=== PATIENT | male | born 1960 | race African-American/Black ===

== ENCOUNTER 2018-05-12 23:07 | Emergency (ER) | payer OTHER ==
[~2018-05-12] VITALS: Ht 177.8 cm; Wt 74.8 kg
[2018-05-12 23:24] VITALS: BP 127/79
--- NOTE | 2018-05-13 00:11 | Emergency Room Report ---
History of Present Illness General Chief Complaint: General Complaint Source: Patient Present Illness HPI Patient is a 57-year-old male brought in by self after increased discharge and swelling from his left leg. Patient reports having recent possible spider bite approximately 2 days ago. Patient reported having increased swelling. He had attempted last this himself. He denies any fever or chills. He denied prior history of HIV or diabetes. Allergies: Coded Allergies: No Known Allergies (Unverified , 05/12/18) Patient History Reviewed Nursing Documentation: PMH: Agreed; PSxH: Agreed Nursing Documentation-PMH Past Medical History: No Stated History Review of Systems All Other Systems: negative except mentioned in HPI Physical Exam Vital Signs Date Time Temp Pulse Resp B/P (MAP) Pulse Ox O2 Delivery O2 Flow Rate FiO2 05/12/18 23:09 98.0 114 18 123/78 99 Room Air 98.1 Sp02 EP Interpretation: reviewed, normal General Appearance: normal inspection, well appearing, no apparent distress, alert, GCS 15 Head: atraumatic ENT: normal ENT inspection, hearing grossly normal, normal voice Neck: normal inspection, full range of motion, supple, no bony tend Respiratory: normal inspection, lungs clear, normal breath sounds, no respiratory distress, no retraction, no wheezing Cardiovascular #1: regular rate, rhythm, no edema Gastrointestinal: normal inspection, normal bowel sounds, non tender, soft, no guarding, no hernia Genitourinary: no CVA tenderness Musculoskeletal: normal inspection, back normal, normal range of motion Neurologic: normal inspection, alert, responsive, speech normal Psychiatric: normal inspection, judgement/insight normal, mood/affect normal Skin: other - left anterior leg discharge and purulent drainage Medical Decision Making Diagnostic Impression: Primary Impression: Abscess of left leg ER Course Patient presented for skin rash. Differential diagnosis included was not limited to abscess, cellulitis, folliculitis, necrotizing fasciitis among others.Because of complexity of patient's case laboratory testing and imaging studies were ordered. The patient was given IV fluids as well as IV antibiotics.The patient was noted to have evidence of purulent drainage. Patient appeared to have adequate drainage of abscess to his left anterior leg. The patient was offered admission. The patient declined admission The patient is advised to follow up with primary care doctor in 1-2 days. Patient is advised to return if any worsening condition or if any changes in status that are concerning. This report is dictated with Dragon tool repair technician software which may occasionally lead to discrepancies related to use of this software. Labs Test 05/13/18 00:19 05/13/18 00:30 White Blood Count 9.0 K/UL (4.8-10.8) Red Blood Count 4.75 M/UL (4.70-6.10) Hemoglobin 13.9 G/DL (14.2-18.0) Hematocrit 41.2 % (42.0-52.0) Mean Corpuscular Volume 87 FL (80-99) Mean Corpuscular Hemoglobin 29.3 PG (27.0-31.0) Mean Corpuscular Hemoglobin Concent 33.8 G/DL (32.0-36.0) Red Cell Distribution Width 12.7 % (11.6-14.8) Platelet Count 155 K/UL (150-450) Mean Platelet Volume 17.0 FL (6.5-10.1) Neutrophils (%) (Auto) 68.6 % (45.0-75.0) Lymphocytes (%) (Auto) 18.9 % (20.0-45.0) Monocytes (%) (Auto) 10.5 % (1.0-10.0) Eosinophils (%) (Auto) 1.1 % (0.0-3.0) Basophils (%) (Auto) 0.9 % (0.0-2.0) Sodium Level 137 MMOL/L (136-145) Potassium Level 3.3 MMOL/L (3.5-5.1) Chloride Level 103 MMOL/L (98-107) Carbon Dioxide Level 28 MMOL/L (21-32) Anion Gap 6 mmol/L (5-15) Blood Urea Nitrogen 12 mg/dL (7-18) Creatinine 1.2 MG/DL (0.55-1.30) Estimat Glomerular Filtration Rate > 60 mL/min (>60) Glucose Level 115 MG/DL (74-106) Calcium Level 9.1 MG/DL (8.5-10.1) Phosphorus Level 2.8 MG/DL (2.5-4.9) Magnesium Level 1.9 MG/DL (1.8-2.4) Total Bilirubin 0.5 MG/DL (0.2-1.0) Aspartate Amino Transf (AST/SGOT) 14 U/L (15-37) Alanine Aminotransferase (ALT/SGPT) 21 U/L (12-78) Alkaline Phosphatase 70 U/L (46-116) Total Creatine Kinase 92 U/L (26-308) Creatine Kinase MB 0.8 NG/ML (0.0-3.6) Creatine Kinase MB Relative Index 0.8 Total Protein 8.4 G/DL (6.4-8.2) Albumin 3.6 G/DL (3.4-5.0) Globulin 4.8 g/dL Albumin/Globulin Ratio 0.8 (1.0-2.7) Lactic Acid Level 0.90 mmol/L (0.4-2.0) Last Vital Signs Date Time Temp Pulse Resp B/P (MAP) Pulse Ox O2 Delivery O2 Flow Rate FiO2 05/12/18 23:24 98.4 70 18 127/79 99 Room Air 98.4 Status: improved Disposition: HOME, SELF-CARE Condition: Stable Scripts Trimethoprim/Sulfamethoxazole 160/800* (BACTRIM DS TABLET*) 1 Each Tablet 1 TAB ORAL Q12H, #14 TAB 0 Refills Prov: Pierre Blevins MD 05/13/18 Cephalexin* (KEFLEX*) 500 Mg Capsule 500 MG ORAL EVERY 6 HOURS, #28 CAP Prov: Pierre Blevins MD 05/13/18 Referrals: [facility]ERR[facility] (PCP) Pierre Blevins MD May 13, 2018 00:11
[2018-05-13] MEDS ORDERED: Ampicillin/Sulbactam Sod 3 GM in NS 110 ML IV SCH (00:15)
[2018-05-13 00:59] LABS: BASOPHILS % (AUTO) 0.9 % (0.0-2.0); EOSINOPHILS % (AUTO) 1.1 % (0.0-3.0); HEMATOCRIT 41.2 % (42.0-52.0); HEMOGLOBIN 13.9 G/DL (14.2-18.0); LYMPHOCYTES % (AUTO) 18.9 % (20.0-45.0); MEAN CORPUSCULAR VOLUME 87 FL (80-99); MONOCYTES % (AUTO) 10.5 % (1.0-10.0); NEUTROPHILS % (AUTO) 68.6 % (45.0-75.0); PLATELET COUNT 155 K/UL (150-450); RED BLOOD COUNT 4.75 M/UL (4.70-6.10); RED CELL DISTRIBUTION WIDTH 12.7 % (11.6-14.8)
[2018-05-13 01:10] LABS: ANION GAP 6 mmol/L (5-15); BLOOD UREA NITROGEN 12 mg/dL (7-18); CALCIUM 9.1 MG/DL (8.5-10.1); CARBON DIOXIDE 28 MMOL/L (21-32); CHLORIDE 103 MMOL/L (98-107); CREATININE 1.2 MG/DL (0.55-1.30); POTASSIUM 3.3 MMOL/L (3.5-5.1); SODIUM 137 MMOL/L (136-145)
[2018-05-13] MEDS ORDERED: BACTRIM DS TAB1 EAC1 ORAL (01:13)
[2018-05-13] MEDS ORDERED: CEPHALEXIN500 MG ORAL (01:13)
[2018-05-13 01:23] LABS: ALANINE AMINOTRANSFERASE 21 U/L (12-78); ALBUMIN 3.6 G/DL (3.4-5.0); ALBUMIN/GLOBULIN RATIO 0.8 (1.0-2.7); ALKALINE PHOSPHATASE 70 U/L (46-116); ASPARTATE AMINO TRANSFERASE 14 U/L (15-37); BILIRUBIN,TOTAL 0.5 MG/DL (0.2-1.0); CKMB 0.8 NG/ML (0.0-3.6); CREATINE KINASE 92 U/L (26-308); PHOSPHORUS 2.8 MG/DL (2.5-4.9)
[2018-05-13 01:34] VITALS: BP 132/80
[2018-05-13 01:35] VITALS: BP 132/80
--- NOTE | 2018-05-13 10:46 | Diagnostic Imaging Report ---
Indication: Shortness of breath Technique: One view of the chest Comparison: none Findings: Lungs and pleural spaces are clear. Heart size is normal Impression: No acute process
== END 2018-05-13 01:50 | disposition home or self-care (01) ==
LOC: EMR 23:27
DX: L02.416 Cutaneous abscess of left lower limb (principal)
CPT/HCPCS: 36415; 71045; 80053; 82550; 82553; 83605; 83735; 84100; 85025; 87040; 96360; 96361; 99284; J0295

== ENCOUNTER 2018-11-07 05:51 | Emergency (ER) | payer OTHER ==
[~2018-11-07] VITALS: Ht 180.3 cm; Wt 74.8 kg
[~2018-11-07 05:51] MED LIST: BACTRIM DS TAB1 EAC1 ORAL; CEPHALEXIN500 MG ORAL
[2018-11-07 06:24] VITALS: BP 137/91
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
[2018-11-07] MEDS ORDERED: Bicillin LA 2.4MMU/4ML SYR IM ONE (06:45)
[2018-11-07 07:00] VITALS: BP 132/88
[2018-11-07 07:01] VITALS: BP 137/91
== END 2018-11-07 07:03 | disposition home or self-care (01) ==
LOC: EMR 06:30
DX: Z20.2 Contact with and (suspected) exposure to infections with a predominantly sexual mode of transmission (principal)
CPT/HCPCS: 96372; 99283

== ENCOUNTER 2020-06-03 14:39 | Inpatient (IN) | payer OTHER ==
[2020-06-03] MEDS ORDERED: Omnipaque-300 100ml vial INJ PRN (14:45)
[2020-06-03] MEDS ORDERED: Metoclopramide 10mg/2ml Inj IVP ONE (14:45)
[2020-06-03] MEDS ORDERED: DiphenhydrAMINE 50mg/ml Inj IVP ONE (14:45)
[2020-06-03] MEDS ORDERED: Morphine Sulfate 4mg/ml Inj (IV USE ONLY) IVP ONE (14:45)
[2020-06-03] MEDS ORDERED: HYDROmorphone 1mg/ml Carpuject ONE (15:08)
[2020-06-03] MEDS ORDERED: HYDROmorphone 1mg/ml Carpuject IVP ONE (15:15)
[2020-06-03] MEDS ORDERED: Piperacillin/Tazobactam 3.375 GM in NS 110 ML IVPB ONE (15:30)
[2020-06-03] MEDS ORDERED: Morphine Sulfate 4mg/ml Inj (IV USE ONLY) IVP PRN (18:45)
[2020-06-03] MEDS ORDERED: Morphine Sulfate 2mg/ml Inj(IV/IM USE ONLY) IVP PRN (18:45)
[2020-06-03] MEDS: HYDROmorphone 1mg/ml Carpuject IVP PRN (21:27)
[2020-06-03] MEDS: Piperacillin/Tazobactam 3.375 GM in NS 110 ML IVPB SCH (22:51)
[2020-06-04] MEDS: HYDROmorphone 1mg/ml Carpuject IVP PRN ×5 (04:29→22:55)
[2020-06-04] MEDS: Piperacillin/Tazobactam 3.375 GM in NS 110 ML IVPB SCH ×3 (06:12→22:45)
[2020-06-04] MEDS ORDERED: Tubing IV Secondary IV ONE (10:05)
[2020-06-04] MEDS ORDERED: NS 275ml ONE (10:05)
[2020-06-04] MEDS: Pantoprazole Inj IVP SCH ×2 (10:35→20:15)
[2020-06-04] MEDS ORDERED: Midazolam 2mg/2ml Inj ONE (10:46)
[2020-06-04] MEDS ORDERED: Lidocaine 1% MPF 10mg/ml 5ml ONE (10:47)
[2020-06-04] MEDS ORDERED: fentaNYL 100 mcg/2 mL IV ONE (10:47)
[2020-06-04] MEDS ORDERED: Sterile Water Irrig 1000ml IRRIG ONE (11:00)
[2020-06-04] MEDS ORDERED: LR 1000ml ONE (11:00)
[2020-06-04] MEDS ORDERED: Succinylcholine 20mg/ml 10ml vial ONE (11:02)
[2020-06-04] MEDS ORDERED: cefOXitin 1gm Inj ONE (11:02)
[2020-06-04] MEDS ORDERED: Rocuronium Bromide 100mg/10ml Inj IV ONE (11:02)
[2020-06-04] MEDS ORDERED: NS Irrig 1000ml IRRIG ONE (11:15)
[2020-06-04] MEDS ORDERED: Morphine Sulfate 10mg/ml Inj ONE (11:47)
[2020-06-04] MEDS ORDERED: Glycopyrrolate 0.2mg/ml 1ml Vial ONE (11:48)
[2020-06-04] MEDS ORDERED: Sodium Chloride 10ml vial INJ ONE (11:48)
[2020-06-04] MEDS ORDERED: Neostigmine 1mg/ml 10ml Inj ONE (11:48)
[2020-06-04] MEDS ORDERED: LR 1000ml 1,000 ML IVLG SCH (11:58)
[2020-06-04] MEDS ORDERED: DiphenhydrAMINE 50mg/ml Inj IVP PRN ×2 (12:00→12:30)
[2020-06-04] MEDS ORDERED: Hydromorphone 0.5mg/0.5ml inj IVP PRN (12:00)
[2020-06-04] MEDS ORDERED: Ketorolac 30mg Inj IV PRN (12:00)
[2020-06-04] MEDS ORDERED: Ketorolac 30mg Inj ONE (12:13)
[2020-06-05] MEDS: HYDROmorphone 1mg/ml Carpuject IVP PRN ×9 (02:03→23:43)
[2020-06-05] MEDS: Pantoprazole Inj IVP SCH ×2 (07:58→20:04)
[2020-06-05] MEDS: Piperacillin/Tazobactam 3.375 GM in NS 110 ML IVPB SCH ×3 (07:58→23:43)
[2020-06-05] MEDS: D5NS 1,000 ML IV SCH (14:35)
[2020-06-06] MEDS: D5NS 1,000 ML IV SCH ×3 (00:02→21:18)
[2020-06-06] MEDS: HYDROmorphone 1mg/ml Carpuject IVP PRN ×6 (02:42→21:25)
[2020-06-06] MEDS: Piperacillin/Tazobactam 3.375 GM in NS 110 ML IVPB SCH ×3 (06:28→23:50)
[2020-06-06] MEDS: Pantoprazole Inj IVP SCH ×2 (09:11→21:17)
[2020-06-06] MEDS ORDERED: Milk of Magnesia 30ml Ud NG PRN (20:45)
[2020-06-07] MEDS: HYDROmorphone 1mg/ml Carpuject IVP PRN ×5 (00:47→18:31)
[2020-06-07] MEDS: D5NS 1,000 ML IV SCH ×2 (07:00→17:07)
[2020-06-07] MEDS: Piperacillin/Tazobactam 3.375 GM in NS 110 ML IVPB SCH ×3 (08:42→22:03)
[2020-06-07] MEDS: Pantoprazole Inj IVP SCH ×2 (08:43→20:46)
[2020-06-07] MEDS ORDERED: Varibar Thin Liquid powder 148gm MC PRN (10:00)
[2020-06-07] MEDS ORDERED: Barium EZ Gas II granules MC PRN (10:00)
[2020-06-07] MEDS ORDERED: Barium EZ HD MC PRN (10:00)
[2020-06-08] MEDS: HYDROmorphone 1mg/ml Carpuject IVP PRN ×6 (01:27→22:42)
[2020-06-08] MEDS: D5NS 1,000 ML IV SCH (01:27)
[2020-06-08] MEDS: Piperacillin/Tazobactam 3.375 GM in NS 110 ML IVPB SCH ×3 (06:00→22:31)
[2020-06-08] MEDS: Pantoprazole Inj IVP SCH ×2 (09:38→20:42)
[2020-06-08] MEDS ORDERED: Milk of Magnesia 30ml Ud NG PRN (12:23)
[2020-06-08] MEDS ORDERED: DiphenhydrAMINE 50mg/ml Inj IVP PRN (12:23)
[2020-06-08] MEDS ORDERED: KCL IV SCH (13:00)
[2020-06-08] MEDS ORDERED: D5NS IV SCH (13:00)
[2020-06-08] MEDS ORDERED: Bisacodyl EC 5mg tab ORAL PRN (20:00)
[2020-06-09] MEDS: HYDROmorphone 1mg/ml Carpuject IVP PRN ×6 (01:27→13:14)
[2020-06-09] MEDS: Piperacillin/Tazobactam 3.375 GM in NS 110 ML IVPB SCH (06:53)
[2020-06-09] MEDS: Pantoprazole Inj IVP SCH (08:15)
[2020-06-09] MEDS ORDERED: Barium EZ Gas II granules MC PRN (10:00)
[2020-06-09] MEDS ORDERED: Barium EZ HD MC PRN (10:00)
[2020-06-09] MEDS ORDERED: Varibar Thin Liquid powder 148gm MC PRN (10:00)
[2020-06-09] MEDS ORDERED: NORCO 5-325 TA1 EAC1 ORAL (11:25)
[2020-06-09] MEDS ORDERED: COLACE100 MG ORAL (11:26)
[2020-06-09] MEDS ORDERED: OMEPRAZOLE20 M2 ORAL (11:28)
[2020-06-09] MEDS ORDERED: D5NS 1000ml IV ONE (14:44)
[2020-06-09] MEDS ORDERED: D5 1/2NS 1000ml IV ONE (14:44)
== END 2020-06-09 14:45 | disposition home or self-care (01) | DRG 222 ==
DX: K25.5 Chronic or unspecified gastric ulcer with perforation (principal); D64.9 Anemia, unspecified; L02.416 Cutaneous abscess of left lower limb; K66.0 Peritoneal adhesions (postprocedural) (postinfection)